=== PATIENT | male | born 1965 | race Caucasian/White ===

== ENCOUNTER 2016-06-18 11:49 | Emergency (ER) | payer BC, MEDICAID, OTHER ==
[~2016-06-18] VITALS: Ht 177.8 cm; Wt 100.0 kg
[2016-06-18 11:53] VITALS: Ht 177.8 cm; Wt 100.0 kg
[2016-06-18] MEDS ORDERED: KETOROLAC 60 MG INJ IM STA (12:09)
[2016-06-18] MEDS ORDERED: HYDROCODONE/APAP (5/325) TAB PO ONE (12:30)
--- NOTE | 2016-06-18 12:54 | RADRPT ---
PROCEDURE: Right shoulder series. CLINICAL INDICATION: Pain. TECHNIQUE: AP views of the shoulder were performed with internal and external rotation, as well as a transscapular Y view. COMPARISON: None. FINDINGS: No acute fracture or dislocation. There is calcific tendinosis in the superior lateral aspect of the shoulder. There is suggestion of soft tissue mass along the lateral inferior aspect of the scapula . The glenohumeral and acromioclavicular joint spaces are intact. No findings of calcific tendoniti s are present. IMPRESSION: 1. No acute bony abnormality 2. Calcific tendinosis of the shoulder 3. Suggestion of a soft tissue mass along the lateral inferior aspect of the scapula. Recommend CT for additional imaging evaluation RPTAT: QQ .Avis Rico MD, Date Time Electronically viewed and signed by .Avis Rico MD, on 06/18/2016 12:54 .M/
[2016-06-18] MEDS ORDERED: NAPR-260 PO (13:09)
[2016-06-18] MEDS ORDERED: HYDR-906 PO (13:09)
--- NOTE | 2016-06-18 13:23 | ERD ---
ER Documentation Chief Complaint Date/Time DATE: 06/18/16 TIME: 13:18 Chief Complaint right shoulder pain x 1 week HPI This is a 50-year-old male presents here with right shoulder pain for the last week. 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 Patient states that shoulder pain is worse with movement. Patient went to his primary care doctor and has been trying ibuprofen and prednisone however this has not worked. He also did 2 sessions of physical therapy with no relief. Patient denies any numbness or tingling of his extremity. He does not have any fevers or chills. Pain is nonradiating and is becoming more constant. She rates his pain as 7 out of 10. Patient denies any chest pain or shortness of breath. ROS 12 point review of systems was done, all negative except per HPI. Medications Home Meds Active Scripts Naproxen* (Naprosyn*) 500 Mg Tablet, 500 MG PO BID Y for PAIN AND/OR INFLAMMATION, #30 TAB Prov:JESUS ORDONEZNA C 06/18/16 Hydrocodone/Acetaminophen (Rio 5-325 Tablet) 1 Each Tablet, 1 TAB PO Q6H Y for PAIN, #15 TAB Prov:JOSÉ LUIS,KIMBERLY C 06/18/16 PMhx/Soc Medical and Surgical Hx: pt denies Medical Hx, pt denies Surgical Hx Hx Alcohol Use: No Hx Substance Use: No Hx Tobacco Use: No Physical Exam Vitals Vital Signs Date Time Temp Pulse Resp B/P Pulse Ox O2 Delivery O2 Flow Rate FiO2 06/18/16 11:53 98.1 86 18 134/77 99 Physical Exam GENERAL: The patient is well developed and appropriate for usual state of health , in no apparent distress. HEENT: Atraumatic. CHEST: Clear to auscultation bilaterally. There are no rales, wheezes or rhonchi. HEART: Regular rate and rhythm. No murmurs, clicks, rubs or gallops. EXTREMITIES: Right shoulder: There are no deformities, no scapular winging. Patient is tender to palpation to the proximal humerus near the bicipital tendon. Positive drop arm test. Patient has painful extension of right shoulder, he has painful internal rotation of the right shoulder. He is neurovascularly intact. Radial ulnar and median nerves are intact. NEURO: Alert and oriented. SKIN: There is no apparent rash or petechia. The skin is warm and dry. Results 24 hrs Current Medications Medications (Trade) Dose Ordered Sig/Gregory Route PRN Reason Start Time Stop Time Status Last Admin Dose Admin Ketorolac Tromethamine (Toradol) 60 mg ONCE STAT IM 06/18/16 12:09 06/18/16 12:10 DC 06/18/16 12:26 Acetaminophen/ Hydrocodone Bitart (Rio (5/325)) 1 tab ONCE ONCE PO 06/18/16 12:30 06/18/16 12:31 DC 06/18/16 12:26 Procedures/MDM Patient was stable throughout the ER course he was given a shot of Decadron without any complications. Potential diagnosis includes but is not limited to shoulder fracture, shoulder dislocation, frozen shoulder, bicipital tendinitis, AC joint separation, impingement syndrome, rotator cuff tear or injury. This is a 50-year-old male that presents to the ER with right shoulder pain. At this time there is no evidence of fracture or dislocation. Patient did have a possible soft tissue mass along the lateral inferior aspect of the scapula, however this is not an emergent condition and patient can get a CT scan on outpatient basis. On physical examination there was no evidence of abnormalities or masses felt. Patient does have some calcific tendinosis of the shoulder which may attribute to some of his pain. Patient was put in sling and given naproxen and Rio for pain. He urgently needs to follow-up with his primary care doctor and obtain a CT and possible MRI to rule out rotator cuff injuries. I shared my medical decision making with the patient he understands and agrees with plan. Departure Diagnosis: Primary Impression: Shoulder pain Condition: Stable Patient Instructions: Shoulder Problems, Shoulder Immobilizer Additional Instructions: Call your primary care doctor TOMORROW for an appointment during the next 1-2 days.See the doctor sooner or return here if your condition worsens before your appointment time. KIMBERLY ORDONEZ June 18, 2016 13:22
== END 2016-06-18 13:40 | disposition home or self-care (01) ==
LOC: FTE 11:49
DX: M25.511 Pain in right shoulder (principal)
CPT/HCPCS: 73030; 96372; 99284; J1885

== ENCOUNTER 2016-06-20 12:35 | Emergency (ER) | payer BC ==
[~2016-06-20] VITALS: Wt 115.0 kg
[~2016-06-20 12:35] MED LIST: HYDR-906 PO; NAPR-260 PO
== END 2016-06-20 13:59 | disposition left against medical advice (07) ==
LOC: FTE 12:35
DX: Z53.21 Procedure and treatment not carried out due to patient leaving prior to being seen by health care provider (principal)